=== PATIENT | male | born 1980 | race Caucasian/White ===

== ENCOUNTER 2017-07-29 09:49 | Emergency (ER) | payer MEDICAID ==
[~2017-07-29] VITALS: Ht 170.2 cm; Wt 86.2 kg
[2017-07-29] MEDS ORDERED: AMLO5TAB PO (09:57)
[2017-07-29] MEDS ORDERED: LISINOPRIL40 MG PO (09:57)
--- NOTE | 2017-07-29 09:57 | Emergency Room Report ---
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 N Clinical Suspician of Infection? N Mental Status: 1 - Regular (Normal Baseline) Sepsis Risk:Low Sepsis Risk Have you (or family members/close friends) recently traveled outside the [place]? N If Yes, where/when: Have you had exposure to infectious disease within the past month? N TB? Other? Specify: Comment The patient complains of chest pain. He describes a continuous sharp chest pain deep to his LEFT nipple that started last evening at 5 PM. He says it is steadily worsening. No other associated symptoms except that he was dizzy yesterday. He says "I am familiar with the drill". He says he began having problems 2 years ago. He went to the emergency room with chest pain and was found to be hypertensive. He has been worked up for chest pain in the past. He had a test last summer which she said involved a stress test and an MRI which showed he had a 25 percent blockage. He sees a acid painter at [facility]. He is on lisinopril for blood pressure. He says he has not been told to take aspirin daily. However, he did take one yesterday evening. He denies shortness of breath, nausea, vomiting, or diaphoresis. Previous pains had been more in his shoulder as compared to where this one is located now. He says he has a strong family history of coronary artery disease. He is a smoker and has hypertension. He does not have hyperlipidemia or diabetes. Pain is currently 04/29. ALLERGIES Coded Allergies: No Known Allergies (07/29/17) Home Medications Reported Medications Lisinopril (Lisinopril 40MG) 40 MG PO DAILY Amlodipine Besylate (Amlodipine) 5 MG PO DAILY History Medical History General CAD? No Angina: No OK: No Hypertension? Yes Hyperlipidemia? No CHF? No DVT? No PE? No COPD? No Asthma? No Anemia? No GERD? No Gastric ulcers? No GI Bleed? No Hernia? No Thyroid Problems? No Hypothyroidism? No Seizures? No Diabetes? No End Stage Renal Disease? No UTI? No Stones? No BPH? No GB Disease: No Nephritic Syndrome? No Asplenia? No Hepatitis? No Sickle Cell Disease? No Glaucoma? No MRSA? No HIV? No TB? No Anxiety? No Depression? No Cancer? No More? No Immunization Hx DT/Tetanus Unknown Surgical Hx Previous Surgery?Y Appendectomy Social History Smoking Hx Smoker: Current Every Day Smoker Tobacco: Yes Type Cigarettes Review of Systems All Other Systems Reviewed and Negative Constitutional denies diaphoresis Respiratory denies cough, denies shortness of breath Cardiovascular chest pain Gastrointestinal denies abdominal pain, denies nausea, denies vomiting Physical Exam Vital Signs Vital Signs Date Time Temp Pulse Resp B/P Pulse O2 O2 Flow FiO2 Ox Delivery Rate 07/29 1103 97.8 74 16 132/84 100 07/29 1041 97.8 74 16 129/82 100 07/29 0950 97.8 74 16 129/80 100 General Appearance normal appearance, WD/WN Eye Exam - bilateral eye normal exam, bilateral eye PERRL, bilateral eye EOMI Ear, Nose, Throat hearing grossly normal, normal ENT inspection Neck normal inspection, non-tender, supple, full range of motion Respiratory Status Yes: trachea midline, chest symmetrical, tender on palpation (reproducible, L anterior). No: respiratory distress. Lung Sounds bilateral: normal breath sounds, lungs clear. 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 No Results/Orders Laboratory Tests 07/29/17 0958: Sodium 140, Potassium 4.3, Chloride 106, Carbon Dioxide 26, BUN 10, Creatinine 0.8, Estimated Creat Clear 151, Estimated GFR (MDRD) 108, Glucose 94, Calcium 8.8, Total Bilirubin 0.7, AST 12 L, ALT 17, Alkaline Phosphatase 69, Creatine Kinase 115, CK-MB (CK-2) Rel Index 0.4, CK and CKMB Interp < 0.5, Troponin I < 0.02, Total Protein 7.8, Albumin 4.0, Globulin 3.8 H, Albumin/Globulin Ratio 1.1, WBC 9.4, RBC 5.05, Hgb 14.9, Hct 43.0, MCV 85.3, RDW 12.8, Plt Count 300, MPV 8.1, Gran % 65.0, Gran # 6.1, Lymphocytes % 27.7, Monocytes % 4.2, Eosinophils % 2.6, Basophils % 0.4, Lymphocytes # 2.6, Monocytes # 0.4, Eosinophils # 0.2, Basophils # 0.0, PUBS MCHC 34.6, MCH 29.5 Current Medication Orders Sig/Kristy Start time Last Medication Dose Route Stop Time Status Admin Aspirin 0 .STK-MED ONE 07/29 1003 DC .ROUTE Aspirin 324 MG ONCE ONE 07/29 1000 DC 07/29 PO 07/29 1001 1004 Sodium Chloride 10 ML PRN PRN 07/29 1000 DCD IV 07/30 959 Orders Procedure Date/time Status CHEST(2 VIEWS-NOT PORTABLE) 07/29 1038 Active ELECTROCARDIOGRAM REQUEST 07/29 959 Active IV SALINE LOCK 07/29 959 Active CBC WITH AUTO DIFF 07/29 959 Complete CARDIAC ENZYMES 07/29 959 Complete CHEM 12 PROFILE 07/29 959 Complete CM/EKG CM/EKG Comments EKG interpreted by Roque Butler MD: Rhythm: sinus Rate: 66 [place]: normal Ectopy: none Conduction: normal ST Segment Changes: none T Wave Changes: none Q Waves: none No evidence of acute ischemia or injury Progress - 10:10 AM: Patient states he does not want anything for pain at this time. 10:55 AM: I recommended a second troponin in 2-3 hours, the patient declines. He says he feels comfortable. He has had 16 hours of continuous chest pain before coming in and his troponin is negative and electrocardiogram is negative. I think it is reasonable for him to be discharged for outpatient follow-up. Departure Departure Disposition DC Home or Self Care(routine) Clinical Impression Primary Impression: Atypical chest pain Condition STABLE Patient Instructions DI for Atypical Chest Pain Additional Instructions Additional instructions for CHEST PAIN: See your physician as soon as possible for further evaluation. Return immediately if worsening chest pain, vomiting, shortness of breath, fever, coughing of blood. ED Critical Care Critical Care No at 1345
[2017-07-29 10:06] LABS: HEMOGLOBIN 14.9 g/dL (14.1-18.0); LYMPH # 2.6 K/mm3 (0.7-4.5); LYMPH % 27.7 % (10-50)
[2017-07-29 10:32] LABS: BUN 10 mg/dL (7-18); GFR (ESTIMATED) 108 ML/MIN (>60)
[2017-07-29 11:03] VITALS: BP 132/84
== END 2017-07-29 11:05 | disposition home or self-care (01) ==
LOC: ER 09:49
PROVIDERS: Emergency Medicine
DX: R07.89 Other chest pain (principal); I25.10 Atherosclerotic heart disease of native coronary artery without angina pectoris; F17.210 Nicotine dependence, cigarettes, uncomplicated; I10 Essential (primary) hypertension; Z79.899 Other long term (current) drug therapy; Z82.49 Family history of ischemic heart disease and other diseases of the circulatory system